=== PATIENT | male | born 1970 | race Caucasian/White ===

== ENCOUNTER 2017-01-06 10:43 | Observation (INO) | payer MEDICAID ==
[~2017-01-06] VITALS: Ht 165.1 cm; Wt 65.8 kg
[~2017-01-06 10:43] MED LIST: DIVA250T51 PO; DOCU-94 PO; GABA-339 PO; LISI-275 PO; METH10TA6 PO; METO-158 PO; NOR5T PO; PRAV20TA3 GT; QUET25TA37 PO; WARF10TA20 PO; WARF3TAB22 PO
[2017-01-06 11:31] LABS: Basophils # (auto) 0 uL; Basophils % (auto) 0.6 % (0.0-2.0); Eosinophils # (auto) 0.1 uL; Eosinophils % (auto) 1.7 % (0.0-7.0); Hematocrit 47.3 % (41.0-53.0); Hemoglobin 15.2 g/dL (13.5-17.5); Lymphocytes # (auto) 1.3 uL; Lymphocytes % (auto) 20.6 % (10.0-50.0); Mean Corpuscular Hemoglobin 30.8 pg (28.0-32.0); Mean Corpuscular Hgb Conc. 32.2 g/dL (32.0-36.0); Mean Corpuscular Volume 95.8 fL (80.0-100.0); Mean Platelet Volume 8.7 fL (7.4-10.4); Monocytes # (auto) 0.4 uL; Monocytes % (auto) 6.7 % (0.0-12.0); Neutrophils # (auto) 4.6 uL; Neutrophils % (auto) 70.4 % (37.0-80.0); Platelet Count (auto) 301 10^3/uL (140-450); Red Cell Distribution Width 15.6 % (11.6-16.0); White Blood Cell 6.6 10^3/uL (4.4-10.8)
[2017-01-06 12:19] LABS: Albumin 3.4 g/dL (3.4-5.0); Alkaline Phosphatase 58 U/L (45-117); Anion Gap 7 (5-15); Aspartate Aminotransferase 31 U/L (15-37); BUN/Creatinine Ratio 22.5; Bilirubin, Total 0.3 mg/dL (0.2-1.0); Blood Urea Nitrogen 18 mg/dL (7-18); Calcium 8.7 mg/dL (8.5-10.1); Carbon Dioxide 29 mmol/L (21-32); Chloride 107 mmol/L (98-107); GFR African American 135 mL/min; GFR Non-African American 112 mL/min; Glucose 81 mg/dL (74-106); Potassium 4.6 mmol/L (3.5-5.1); Sodium 143 mmol/L (136-145); Total Protein 6.7 g/dL (6.4-8.2)
[2017-01-06] MEDS ORDERED: SODIUM CHLORIDE 0.9% 1,000 ML IVB ONE (13:22)
[2017-01-06 13:41] LABS: Amylase 34 U/L (25-115)
[2017-01-06] MEDS ORDERED: GLYCERIN ADULT RECTAL SUPP PR ONE (17:30)
[2017-01-06] MEDS ORDERED: FLEET ENEMA(ADULT) 135 ML PR ONE (17:30)
[2017-01-06 20:13] LABS: Urine Bilirubin Negative (Negative); Urine Blood Negative /uL (Negative); Urine Color Yellow (Yellow); Urine Glucose Normal (Normal); Urine Ketone Negative (Negative); Urine Nitrite Negative (Negative); Urine RBC 1 /hpf (0 - 3); Urine Squamous Epithelial Cell FEW /hpf (<5); Urine Urobilinogen Normal (Negative); Urine pH 7.5 (5.0-8.0)
[2017-01-06 21:56] VITALS: BP 90/65
== END 2017-01-06 21:54 | disposition home or self-care (01) | DRG 254 ==
LOC: EDBD 10:43 → ER 10:51 → OVERFLOW 13:24 → ER 21:54
PROVIDERS: ADMIT Family Medicine; ATTEND Family Medicine
DX: K59.00 Constipation, unspecified (principal); I11.0 Hypertensive heart disease with heart failure; I50.9 Heart failure, unspecified; I25.10 Atherosclerotic heart disease of native coronary artery without angina pectoris; I48.92 Unspecified atrial flutter; I48.91 Unspecified atrial fibrillation; F17.210 Nicotine dependence, cigarettes, uncomplicated; Z95.0 Presence of cardiac pacemaker; Z86.73 Personal history of transient ischemic attack (TIA), and cerebral infarction without residual deficits
CPT/HCPCS: 36415; 71020; 74176; 80053; 81001; 82150; 83690; 84484; 85025; 93005; 96360; 99285; G0378

== ENCOUNTER 2017-06-15 16:10 | Emergency (ER) | payer MEDICAID ==
[~2017-06-15] VITALS: Ht 177.8 cm; Wt 74.8 kg
[~2017-06-15 16:10] MED LIST changes: +HYDR-4663 PO; -NOR5T PO
[2017-06-15 16:28] VITALS: BP 107/71
[2017-06-15] MEDS ORDERED: SODIUM CHLORIDE 0.9% 1,000 ML IVB ONE (16:51)
[2017-06-15] MEDS ORDERED: KETOROLAC TROMETH 30 MG/ML 1ML VIAL IV ONE (17:00)
[2017-06-15 17:40] LABS: Basophils # (auto) 0.1 uL; Basophils % (auto) 1.1 % (0.0-2.0); Eosinophils # (auto) 0.1 uL; Eosinophils % (auto) 2.3 % (0.0-7.0); Hematocrit 47.3 % (41.0-53.0); Hemoglobin 15.7 g/dL (13.5-17.5); Lymphocytes # (auto) 1.4 uL; Lymphocytes % (auto) 29.1 % (10.0-50.0); Mean Corpuscular Hemoglobin 32.6 pg (28.0-32.0); Mean Corpuscular Hgb Conc. 33.3 g/dL (32.0-36.0); Mean Corpuscular Volume 97.8 fL (80.0-100.0); Mean Platelet Volume 8.9 fL (6.9-10.8); Monocytes # (auto) 0.4 uL; Monocytes % (auto) 8.4 % (0.0-12.0); Neutrophils # (auto) 2.8 uL; Neutrophils % (auto) 59.1 % (37.0-80.0); Nucleated Red Blood Cells % 0.1 %; Platelet Count (auto) 176 10^3/uL (140-450); Red Cell Distribution Width 15.9 % (11.8-14.3); White Blood Cell 4.7 10^3/uL (4.4-10.8)
[2017-06-15 17:47] LABS: Albumin 3.6 g/dL (3.4-5.0); Alkaline Phosphatase 42 U/L (45-117); Anion Gap 5 (5-15); Aspartate Aminotransferase 78 U/L (15-37); BUN/Creatinine Ratio 18.4; Bilirubin, Total 0.3 mg/dL (0.2-1.0); Blood Urea Nitrogen 21 mg/dL (7-18); Carbon Dioxide 32 mmol/L (21-32); Chloride 103 mmol/L (98-107); GFR African American 90 mL/min; GFR Non-African American 74 mL/min; Glucose 82 mg/dL (74-106); Potassium 4.4 mmol/L (3.5-5.1); Sodium 140 mmol/L (136-145); Total Protein 6.9 g/dL (6.4-8.2)
== END 2017-06-15 17:49 | disposition left against medical advice (07) ==
LOC: EDBD 16:10 → ER 16:20
DX: R07.89 Other chest pain (principal); G89.4 Chronic pain syndrome; I10 Essential (primary) hypertension; Z86.73 Personal history of transient ischemic attack (TIA), and cerebral infarction without residual deficits; I25.10 Atherosclerotic heart disease of native coronary artery without angina pectoris; I48.91 Unspecified atrial fibrillation; I50.9 Heart failure, unspecified; E78.5 Hyperlipidemia, unspecified; Z79.01 Long term (current) use of anticoagulants; F17.210 Nicotine dependence, cigarettes, uncomplicated; Z88.6 Allergy status to analgesic agent; Z53.29 Procedure and treatment not carried out because of patient's decision for other reasons
CPT/HCPCS: 36415; 80053; 84484; 85025; 93005; 94761

== ENCOUNTER 2017-07-14 12:29 | Emergency (ER) | payer MEDICARE, MEDICAID ==
[~2017-07-14] VITALS: Ht 167.6 cm; Wt 77.1 kg
[~2017-07-14 12:29] MED LIST changes: -HYDR-4663 PO; +HYDR-4683 PO
[2017-07-14 13:46] LABS: Basophils # (auto) 0 uL; Basophils % (auto) 0.8 % (0.0-2.0); Eosinophils # (auto) 0.1 uL; Hematocrit 41.5 % (41.0-53.0); Hemoglobin 13.9 g/dL (13.5-17.5); Lymphocytes # (auto) 1.4 uL; Lymphocytes % (auto) 25.9 % (10.0-50.0); Mean Corpuscular Hemoglobin 32.8 pg (28.0-32.0); Mean Corpuscular Hgb Conc. 33.4 g/dL (32.0-36.0); Mean Corpuscular Volume 98.3 fL (80.0-100.0); Monocytes # (auto) 0.5 uL; Monocytes % (auto) 9.5 % (0.0-12.0); Neutrophils # (auto) 3.3 uL; Neutrophils % (auto) 61.8 % (37.0-80.0); Nucleated Red Blood Cells % 0.1 %; Platelet Count (auto) 169 10^3/uL (140-450); Red Blood Cells 4.22 10^6/uL (4.5-5.90); Red Cell Distribution Width 15.3 % (11.8-14.3); White Blood Cell 5.3 10^3/uL (4.4-10.8)
[2017-07-14] MEDS ORDERED: SODIUM CHLORIDE 0.9% 1,000 ML IV ONE (13:50)
[2017-07-14] MEDS ORDERED: PROMETHAZINE HCL 25 MG/ML 1ML IV ONE (14:00)
[2017-07-14] MEDS ORDERED: KETOROLAC TROMETH 30 MG/ML 1ML VIAL IV ONE (14:00)
[2017-07-14 14:12] LABS: Alanine Aminotransferase 31 U/L (16-61); Albumin 3.1 g/dL (3.4-5.0); Alkaline Phosphatase 42 U/L (45-117); Anion Gap 6 (5-15); Aspartate Aminotransferase 25 U/L (15-37); BUN/Creatinine Ratio 18.6; Bilirubin, Total 0.4 mg/dL (0.2-1.0); Blood Urea Nitrogen 18 mg/dL (7-18); Calcium 8.3 mg/dL (8.5-10.1); Carbon Dioxide 31 mmol/L (21-32); Chloride 105 mmol/L (98-107); GFR African American 108 mL/min; GFR Non-African American 89 mL/min; Glucose 63 mg/dL (74-106); Magnesium 2.3 mg/dL (1.6-2.6); Potassium 3.9 mmol/L (3.5-5.1); Sodium 142 mmol/L (136-145); Total Protein 6.3 g/dL (6.4-8.2)
[2017-07-14 14:54] LABS: Urine WBC None Seen /hpf (0 - 3)
[2017-07-14 15:20] LABS: Urine Bacteria NONE SEEN /hpf (None Seen); Urine Blood Negative /uL (Negative); Urine Specific Gravity 1.018 (1.001-1.035)
[2017-07-14 17:10] VITALS: BP 135/61
== END 2017-07-14 17:30 | disposition home or self-care (01) ==
LOC: EDBD 12:29 → ER 12:39
DX: S33.5XXA Sprain of ligaments of lumbar spine, initial encounter (principal); I48.91 Unspecified atrial fibrillation; I48.92 Unspecified atrial flutter; Z86.73 Personal history of transient ischemic attack (TIA), and cerebral infarction without residual deficits; Z95.0 Presence of cardiac pacemaker; I50.9 Heart failure, unspecified; I25.10 Atherosclerotic heart disease of native coronary artery without angina pectoris; I11.0 Hypertensive heart disease with heart failure; F17.210 Nicotine dependence, cigarettes, uncomplicated; G40.909 Epilepsy, unspecified, not intractable, without status epilepticus; E78.5 Hyperlipidemia, unspecified; R07.9 Chest pain, unspecified; X58.XXXA Exposure to other specified factors, initial encounter; Y93.89 Activity, other specified; Y92.89 Other specified places as the place of occurrence of the external cause; Y99.8 Other external cause status
CPT/HCPCS: 36415; 71020; 72100; 80053; 81001; 83735; 84484; 85025; 93005; 96361; 96374; 96375; 99285; J1885; J2550; J7030

== ENCOUNTER 2018-04-21 00:34 | Observation (INO) | payer MEDICARE, MEDICAID ==
[~2018-04-21] VITALS: Ht 165.1 cm; Wt 54.4 kg
[2018-04-21 01:12] VITALS: BP 125/98
== END 2018-04-21 03:43 | disposition home or self-care (01) | DRG 149 ==
LOC: EDBD 00:34 → ER 00:34 → OVERFLOW 00:35 → ER 03:43
PROVIDERS: ADMIT Emergency Medicine; ATTEND Emergency Medicine
DX: R42 Dizziness and giddiness (principal); I11.0 Hypertensive heart disease with heart failure; I50.9 Heart failure, unspecified; I25.10 Atherosclerotic heart disease of native coronary artery without angina pectoris; I48.91 Unspecified atrial fibrillation; F17.210 Nicotine dependence, cigarettes, uncomplicated; V89.2XXA Person injured in unspecified motor-vehicle accident, traffic, initial encounter; Y93.89 Activity, other specified; Y92.410 Unspecified street and highway as the place of occurrence of the external cause; Y99.8 Other external cause status; Z86.73 Personal history of transient ischemic attack (TIA), and cerebral infarction without residual deficits
CPT/HCPCS: 36415; 70450; 80320; 99285; G0378

== ENCOUNTER → 2018-06-18 | Emergency (ER) | payer MEDICARE, MEDICAID | END | disposition left against medical advice (07) | LOC: ER 01:14 | DX: M25.511 Pain in right shoulder (principal); Z53.21 Procedure and treatment not carried out due to patient leaving prior to being seen by health care provider ==

== ENCOUNTER 2022-05-02 03:02 | Emergency (ER) | payer MEDICARE, MEDICAID ==
[~2022-05-02] VITALS: Ht 172.7 cm; Wt 81.8 kg
[~2022-05-02 03:02] MED LIST changes: +DIVA250T4 PO; -DIVA250T51 PO; -HYDR-4683 PO; +HYDR-4833 PO
[2022-05-02 03:37] VITALS: BP 90/50
[2022-05-02 04:01] LABS: Basophils # (auto) 0.1 10 ^3/uL (0-0.2); Basophils % (auto) 0.8 % (0.0-2.0); Eosinophils # (auto) 0.2 10 ^3/uL (0-0.8); Eosinophils % (auto) 1.9 % (0.0-7.0); Lymphocytes # (auto) 2.6 10 ^3/uL (0.4-5.4); Lymphocytes % (auto) 23.9 % (10.0-50.0); Mean Corpuscular Hemoglobin 32.4 pg (28.0-32.0); Mean Corpuscular Hgb Conc. 33.4 g/dL (32.0-36.0); Mean Corpuscular Volume 96.9 fL (80.0-100.0); Monocytes # (auto) 0.7 10 ^3/uL (0-1.3); Monocytes % (auto) 6.4 % (0.0-12.0); Neutrophils # (auto) 7.2 10 ^3/uL (1.6-8.6); Red Blood Cells 4.95 10^6/uL (4.5-5.90); Red Cell Distribution Width 14.6 % (11.8-14.3); White Blood Cell 10.8 10^3/uL (4.4-10.8)
[2022-05-02 04:27] LABS: Albumin 3.5 g/dL (3.4-5.0); BUN/Creatinine Ratio 22.9; Calcium 9.3 mg/dL (8.5-10.1); Potassium 4.2 mmol/L (3.5-5.1)
[2022-05-02 04:30] LABS: Bilirubin, Total 0.3 mg/dL (0.2-1.0); Total Protein 6.9 g/dL (6.4-8.2)
== END 2022-05-02 07:00 | disposition left against medical advice (07) ==
LOC: ER 03:02 → EDBD 03:02 → ER 07:00
DX: R10.84 Generalized abdominal pain (principal); R11.2 Nausea with vomiting, unspecified; R20.2 Paresthesia of skin; Z53.21 Procedure and treatment not carried out due to patient leaving prior to being seen by health care provider
CPT/HCPCS: 36415; 80053; 83690; 85025; 93005

== ENCOUNTER 2022-12-21 12:21 | Inpatient (IN) | payer MEDICARE, MEDICAID ==
[~2022-12-21] VITALS: Ht 167.6 cm; Wt 65.9 kg
[~2022-12-21 12:21] MED LIST changes: -DIGO0.12 PO
[2022-12-21 12:59] LABS: Basophils # (auto) 0.1 10 ^3/uL (0-0.2); Basophils % (auto) 0.5 % (0.0-2.0); Eosinophils # (auto) 0.1 10 ^3/uL (0-0.8); Hematocrit 50.6 % (41.0-53.0); Hemoglobin 16.6 g/dL (13.5-17.5); Lymphocytes % (auto) 9.3 % (10.0-50.0); Mean Corpuscular Hemoglobin 31.3 pg (28.0-32.0); Mean Corpuscular Hgb Conc. 32.9 g/dL (32.0-36.0); Mean Corpuscular Volume 95.2 fL (80.0-100.0); Monocytes # (auto) 1.2 10 ^3/uL (0-1.3); Monocytes % (auto) 10.8 % (0.0-12.0); Neutrophils # (auto) 8.5 10 ^3/uL (1.6-8.6); Neutrophils % (auto) 78.4 % (37.0-80.0); Nucleated Red Blood Cells % 0.1 %; Red Blood Cells 5.31 10^6/uL (4.5-5.90); Red Cell Distribution Width 14.8 % (11.8-14.3); White Blood Cell 10.9 10^3/uL (4.4-10.8)
[2022-12-21 13:15] LABS: Albumin 4.1 g/dL (3.4-5.0); Calcium 9.7 mg/dL (8.5-10.1); Magnesium 2.3 mg/dL (1.6-2.6); Potassium 3.9 mmol/L (3.5-5.1)
[2022-12-21] MEDS ORDERED: ONDANSETRON HCL 4 MG/2 ML VIAL IV ONE (13:15)
[2022-12-21] MEDS ORDERED: MORPHINE SULFATE INJ 2 MG/ml SYRG IV ONE (13:15)
[2022-12-21 13:18] LABS: BUN/Creatinine Ratio 18.2 (10.0-20.0); Bilirubin, Total 1.1 mg/dL (0.2-1.0)
[2022-12-21 13:42] LABS: INR 5.65 (0.9-1.15)
[2022-12-21 13:43] LABS: Partial Thromboplastin Time 77.9 sec (24.6-33.4)
[2022-12-21] MEDS ORDERED: SODIUM CHLORIDE 0.9% 1,000 ML IV ONE (14:00)
[2022-12-21] MEDS ORDERED: NITROGLYCERIN 2% OINT 1GM PKG TD ONE (14:00)
[2022-12-21] MEDS ORDERED: HYDROmorphone HCL 2 MG/ML VL/or syr IV ONE (14:30)
[2022-12-21] MEDS ORDERED: NITROGLYCERIN 0.4 MG SL TAB SL PRN (15:00)
[2022-12-21] MEDS ORDERED: MORPHINE SULFATE INJ 2 MG/ml SYRG IV PRN (15:00)
[2022-12-21 16:34] LABS: Cholesterol 161 mg/dL (< 200)
[2022-12-21 16:37] LABS: HDL Cholesterol 81 mg/dL (40-59); LDL Cholesterol 68 mg/dL (< 100); Triglycerides 48 mg/dL (< 150)
[2022-12-21] MEDS: SODIUM CHLORIDE 0.9% 1,000 ML IV SCH (17:49)
[2022-12-21 22:34] VITALS: BP 102/72
[2022-12-22] MEDS: PRAVASTATIN SODIUM 20 MG TAB PO SCH ×2 (00:13→20:41)
[2022-12-22] MEDS: ACETAMINOPHEN 325 MG TAB PO PRN ×2 (00:13→20:41)
[2022-12-22 05:00] VITALS: BP 120/77
[2022-12-22 06:51] LABS: Basophils # (auto) 0 10 ^3/uL (0-0.2); Basophils % (auto) 0.3 % (0.0-2.0); Eosinophils # (auto) 0 10 ^3/uL (0-0.8); Eosinophils % (auto) 0.3 % (0.0-7.0); Hematocrit 48.3 % (41.0-53.0); Hemoglobin 16.2 g/dL (13.5-17.5); Lymphocytes # (auto) 1.6 10 ^3/uL (0.4-5.4); Lymphocytes % (auto) 14.5 % (10.0-50.0); Mean Corpuscular Hgb Conc. 33.6 g/dL (32.0-36.0); Mean Corpuscular Volume 95.1 fL (80.0-100.0); Monocytes # (auto) 1.5 10 ^3/uL (0-1.3); Monocytes % (auto) 13.6 % (0.0-12.0); Neutrophils % (auto) 71.3 % (37.0-80.0); Nucleated Red Blood Cells % 0.1 %; Red Blood Cells 5.08 10^6/uL (4.5-5.90); Red Cell Distribution Width 14.7 % (11.8-14.3); White Blood Cell 11.2 10^3/uL (4.4-10.8)
[2022-12-22 07:43] LABS: Potassium 4.8 mmol/L (3.5-5.1)
[2022-12-22 07:52] LABS: Albumin 3.3 g/dL (3.4-5.0); BUN/Creatinine Ratio 22.9 (10.0-20.0); Bilirubin, Total 1.6 mg/dL (0.2-1.0); Total Protein 7.4 g/dL (6.4-8.2)
[2022-12-22 08:13] LABS: INR 6.86 (0.9-1.15)
[2022-12-22] MEDS: ASPirin 81 mg TAB PO SCH (09:54)
[2022-12-22] MEDS ORDERED: METOPROLOL TARTRATE 50 MG TAB PO SCH (10:00)
[2022-12-22] MEDS ORDERED: DIGO0.12 PO (10:01)
[2022-12-22 10:03] VITALS: BP 96/75
[2022-12-22 12:44] LABS: Amphetamine Screen, Urine POSITIVE (NEGATIVE); Barbiturate Scree,Urine NEGATIVE (NEGATIVE); Benzodiazephine Screen, Urine NEGATIVE (NEGATIVE); Cannabinoid Screen, Urine POSITIVE (NEGATIVE)
[2022-12-22 12:49] LABS: Cocaine Screen, Urine NEGATIVE (NEGATIVE)
[2022-12-22 12:55] LABS: Phencyclidine Screen, Urine NEGATIVE (NEGATIVE)
[2022-12-22 12:58] LABS: Opiate Scree,Urine POSITIVE (NEGATIVE)
[2022-12-22 13:04] LABS: Urine Bacteria NONE SEEN /hpf (None Seen); Urine Blood Negative /uL (Negative); Urine Hyaline Cast FEW /lpf (0 - 2); Urine Mucus FEW (None Seen); Urine Specific Gravity 1.029 (1.001-1.035); Urine WBC 3 /hpf (0 - 3)
[2022-12-22 13:15] VITALS: BP 113/79
[2022-12-22] MEDS: SODIUM CHLORIDE 0.9% 1,000 ML IV SCH (16:03)
[2022-12-22 16:39] VITALS: BP 118/78
[2022-12-22] MEDS: methIMAzole 5 MG TAB PO SCH (21:15)
[2022-12-22] MEDS: LISINOPRIL 5 MG TAB PO SCH (21:15)
[2022-12-22 22:00] VITALS: BP 110/73
[2022-12-22 22:33] VITALS: BP 110/73
[2022-12-23 05:00] VITALS: BP 140/67
[2022-12-23] MEDS: methIMAzole 5 MG TAB PO SCH (05:10)
[2022-12-23] MEDS: SODIUM CHLORIDE 0.9% 1,000 ML IV SCH (08:42)
[2022-12-23 09:30] VITALS: BP 142/73
[2022-12-23] MEDS: LISINOPRIL 5 MG TAB PO SCH (09:57)
[2022-12-23] MEDS: ASPirin 81 mg TAB PO SCH (09:58)
[2022-12-23] MEDS ORDERED: DIGOXIN 0.125 MG TAB PO SCH (10:00)
[2022-12-23 10:58] VITALS: BP 142/73
== END 2022-12-23 13:00 | disposition home or self-care (01) | DRG 302 ==
LOC: ER 12:21 → EDBD 12:21 → TELE 14:55 → TELE-EAST 21:54
PROVIDERS: ADMIT Nurse Practitioner Family; ATTEND Family Medicine
DX: I25.10 Atherosclerotic heart disease of native coronary artery without angina pectoris (principal); I50.31 Acute diastolic (congestive) heart failure; N17.9 Acute kidney failure, unspecified; I24.9 Acute ischemic heart disease, unspecified; I11.0 Hypertensive heart disease with heart failure; I48.91 Unspecified atrial fibrillation; E05.90 Thyrotoxicosis, unspecified without thyrotoxic crisis or storm; E78.00 Pure hypercholesterolemia, unspecified; F15.10 Other stimulant abuse, uncomplicated; F12.10 Cannabis abuse, uncomplicated; F17.210 Nicotine dependence, cigarettes, uncomplicated; G62.9 Polyneuropathy, unspecified; Z20.822 Contact with and (suspected) exposure to COVID-19; R79.1 Abnormal coagulation profile; Z82.49 Family history of ischemic heart disease and other diseases of the circulatory system; Z83.3 Family history of diabetes mellitus; Z86.73 Personal history of transient ischemic attack (TIA), and cerebral infarction without residual deficits; Z95.0 Presence of cardiac pacemaker
CPT/HCPCS: 36415; 71045; 80053; 80061; 80162; 80307; 81001; 83036; 83735; 83880; 84443; 84484; 85025; 85379; 85610; 85730; 87040; 87426; 93005; 93306; 96361; 96374; 96375; G0378; J2405

== ENCOUNTER → 2022-12-21 | Emergency (ER) | payer MEDICARE, MEDICAID ==
[~2022-12-21] VITALS: Ht 170.2 cm; Wt 63.6 kg
[~2022-12-21] MED LIST changes: +DIGO0.12 PO; -PRAV20TA3 GT; +PRAV20TA3 PO
[2022-12-21 03:03] VITALS: BP 125/85
[2022-12-21 03:07] LABS: Basophils # (auto) 0.3 10 ^3/uL (0-0.2); Basophils % (auto) 2.5 % (0.0-2.0); Eosinophils # (auto) 0.2 10 ^3/uL (0-0.8); Eosinophils % (auto) 1.5 % (0.0-7.0); Hematocrit 47.4 % (41.0-53.0); Hemoglobin 15.8 g/dL (13.5-17.5); Mean Corpuscular Hemoglobin 31.9 pg (28.0-32.0); Mean Corpuscular Hgb Conc. 33.3 g/dL (32.0-36.0); Mean Corpuscular Volume 95.9 fL (80.0-100.0); Monocytes # (auto) 0.7 10 ^3/uL (0-1.3); Neutrophils # (auto) 9.2 10 ^3/uL (1.6-8.6); Nucleated Red Blood Cells % 0.1 %; Red Blood Cells 4.94 10^6/uL (4.5-5.90); Red Cell Distribution Width 14.6 % (11.8-14.3); White Blood Cell 11.3 10^3/uL (4.4-10.8)
[2022-12-21 03:27] LABS: Albumin 4.1 g/dL (3.4-5.0); BUN/Creatinine Ratio 17.6 (10.0-20.0); Calcium 9.7 mg/dL (8.5-10.1); Potassium 4.2 mmol/L (3.5-5.1)
[2022-12-21 03:30] LABS: Bilirubin, Total 0.6 mg/dL (0.2-1.0); Total Protein 8.2 g/dL (6.4-8.2)
== END | disposition left against medical advice (07) ==
LOC: ER 02:47
DX: R07.89 Other chest pain (principal)
CPT/HCPCS: 36415; 71045; 80053; 84484; 85025; 93005

== ENCOUNTER 2025-05-11 07:11 | Emergency (ER) | payer OTHER, MEDICAID ==
[~2025-05-11] VITALS: Ht 165.1 cm; Wt 70.0 kg
[~2025-05-11 07:11] MED LIST changes: +DIGO0.12 PO; -DIVA250T4 PO; -DOCU-94 PO; -GABA-339 PO; -HYDR-4833 PO; +METH-552 PO; -METH10TA6 PO; -METO-158 PO; -QUET25TA37 PO; +WARF-111 PO; +WARF-115 PO; -WARF10TA20 PO; -WARF3TAB22 PO
[2025-05-11 07:25] VITALS: BP 112/72; RESP 18; TEMP 98.8; O2SAT 96
--- NOTE | 2025-05-11 07:28 | ED.PDOC ---
HPI Comments This is a 54 year old male BEV presenting to the ED with chief complaint of near-syncope. Patient reports that when he got out of the bathtub this morning, he started to experience lightheadedness and needed to sit down due to feeling like he was going to pass out. EMS relays that the patient was hypotensive on scene at 78/54, however, after 500mL of fluids was given en route to the ED, his BP improved to 112/72. Patient denies any chest pain, SOB, dizziness, N/V, headache, or syncope. Time Seen by MD: 07:26 Primary Care Provider: Terry Reviewed Notes: Nurses Notes, Customer Support Associate Notes, Medications, Allergies Allergies: Coded Allergies: Midazolam (Verified Allergy, Unknown, 05/23/16) Home Meds Reported Medications Digoxin (Digoxin) 125 Mcg Tab, 125 MCG PO DAILY, TAB 12/22/22 Methimazole (Methimazole) 10 Mg Tab, 5 MG PO TID, TAB 05/23/16 Pravastatin Sodium (PRAVACHOL TABLET) 20 Mg Tb, 10 MG PO HS 05/23/16 Warfarin Sodium (Warfarin Sodium) 10 Mg Tab, 10 MG PO, TAB 05/23/16 Warfarin Sodium (Warfarin Sodium) 3 Mg Tab, 1 MG PO for 30 Days, MG 05/23/16 Lisinopril (Lisinopril) 5 Mg Tab, 20 MG PO BID for 30 Days, MG 05/23/16 Information Source: Patient, Emergency Med Personnel Mode of Arrival: EMS Severity: Moderate Timing: Hours Duration: Since onset Prehospital treatment: None Onset: At Rest Cardiac Risk Factors: Hyperlipidemia, HTN PE Risk Factors: None Past Medical History PAST MEDICAL HISTORY: AFIB, CAD, CHF, CVA, High Lipids, HTN, Thyroid Surgical History: Pacemaker, Tonsillectomy Family History Family History: Reviewed,noncontributory to illness, Unknown Social History Smoker: Cigarettes, Less Than 1 Pack/Day Alcohol: Occasionally Drugs: Denies Drug Use Lives In: Home Constitutional: denies: chills, diaphoresis, fatigue, fever, malaise, sweats, weakness, others EENTM: denies: blurred vision, double vision, ear bleeding, ear discharge, ear drainage, ear pain, ear ringing, eye pain, eye redness, hearing loss, mouth pain, mouth swelling, nasal discharge, nose bleeding, nose congestion, nose pain, photophobia, tearing, throat pain, throat swelling, voice changes, others Respiratory: denies: cough, hemoptysis, orthopnea, SOB at rest, shortness of breath, SOB with excertion, stridor, wheezing, others Cardiovascular: reports: lightheadedness; denies: chest pain, dizzy spells, diaphoresis, Dyspnea on exertion, edema, irregular heart beat, left arm pain, palpitations, PND, syncope, others Gastrointestinal: denies: abdomen distended, abdominal pain, blood streaked bowels, constipated, diarrhea, dysphagia, difficulty swallowing, hematemesis, melena, nausea, poor appetite, poor fluid intake, rectal bleeding, rectal pain, vomiting, others Genitourinary: denies: burning, dysuria, flank pain, frequency, hematuria, incontinence, penile discharge, penile sore, pain, testicle pain, testicle swelling, urgency, others Neurological: denies: dizziness, fainting, headache, left sided numbness, left sided weakness, numbness, paresthesia, pre-existing deficit, right sided numbness, right sided weakness, seizure, speech problems, tingling, tremors, weakness, others Musculoskeletal: denies: back pain, gout, joint pain, joint swelling, muscle pain, muscle stiffness, neck pain, others Integumetry: denies: bruises, change in color, change in hair/nails, dryness, laceration, lesions, lumps, rash, wounds, others Allergic/Immunocompromised: denies: Difficulty Healing, Frequent Infections, Hives, Itching, others Hematologic/Lymphatic: denies: anemia, blood clots, easy bleeding, easy bruising, swollen glands, others Endocrine: denies: excessive hunger, excessive sweating, excessive thirst, excessive urination, flushing, intolerance to cold, intolerance to heat, unexplained weight gain, unexplained weight loss, others Psychiatric: denies: anxiety, bipolar disorder, depression, hopeless, panic disorder, schizophrenia, sleepless, suicidal, others All Other Systems: Reviewed and Negative Physical Exam General Appearance: Moderate Distress, Normal HEENT: Normal ENT Inspection, Pharynx Normal, TMs Normal Neck: Full Range of Motion, Non-Tender, Normal, Normal Inspection Respiratory: Chest Non-Tender, Lungs Clear, No Accessory Muscle Use, No Respir atory Distress, Normal Breath Sounds Cardiovascular: Irregular, No Edema, No JVD, No Murmur, No Gallop, Normal Peripheral Pulses Breast Exam: Deferred Gastrointestinal: No Organomegaly, Non Tender, No Pulsatile Mass, Normal Bowel Sounds, Soft Genitalia: Deferred Pelvic: Deferred Rectal: Deferred Extremities: No calf tenderness, Normal capillary refill, Normal inspection, Normal range of motion, Non-tender, No pedal edema Musculoskeletal : Apperance: Normal Neurologic: Alert, mill manager II-XII nml as Tested, No Motor Deficits, Normal Affect, Normal Mood, No Sensory Deficits Cerebellar Function: NOT DONE Reflexes: NOT DONE Skin: Dry, Normal Color, Warm Peripheral Pulses: 3+ Radial (R), 3+ Radial (L) Lymphatic: No Adenopathy EKG EKG : Pulse Rate (adult): 95 Cardiac Rhythm: Afib Was a procedure done? Was a procedure done?: No CP Differential Dx Differential Diagnosis: A-fib, A-Flutter, Angina, Anxiety / Panic Attack, Atrial Dysrhythmia, Electrolyte Disorder X-Ray, Labs, Meds, VS Vital Signs Date Time Temp Pulse Resp B/P (MAP) Pulse Ox O2 Delivery O2 Flow Rate FiO2 05/11/25 07:30 95 05/11/25 07:28 95 05/11/25 07:25 98.8 79 18 112/72 96 98.8 Lab Test 05/11/25 07:49 Range/Units White Blood Count 6.8 4.4-10.8 10^3/uL Red Blood Count 5.47 4.5-5.90 10^6/uL Hemoglobin 17.4 13.5-17.5 g/dL Hematocrit 50.6 41.0-53.0 % Mean Corpuscular Volume 92.5 80.0-100.0 fL Mean Corpuscular Hemoglobin 31.8 28.0-32.0 pg Mean Corpuscular Hemoglobin Concent 34.4 32.0-36.0 g/dL Red Cell Distribution Width 14.1 11.8-14.3 % Platelet Count 224 140-450 10^3/uL Mean Platelet Volume 9.1 6.9-10.8 fL Neutrophils (%) (Auto) 60.4 37.0-80.0 % Lymphocytes (%) (Auto) 25.0 10.0-50.0 % Monocytes (%) (Auto) 8.7 0.0-12.0 % Eosinophils (%) (Auto) 5.2 0.0-7.0 % Basophils (%) (Auto) 0.7 0.0-2.0 % Neutrophils # (Auto) 4.1 1.6-8.6 10 ^3/uL Lymphocytes # (Auto) 1.7 0.4-5.4 10 ^3/uL Monocytes # (Auto) 0.6 0-1.3 10 ^3/uL Eosinophils # (Auto) 0.4 0-0.8 10 ^3/uL Basophils # (Auto) 0 0-0.2 10 ^3/uL Nucleated Red Blood Cells 0.2 % Sodium Level 141 136-145 mmol/L Potassium Level 4.4 3.5-5.1 mmol/L Chloride Level 106 98-107 mmol/L Carbon Dioxide Level 24 20-31 mmol/L Anion Gap 11 5-15 Blood Urea Nitrogen 18 9-23 mg/dL Creatinine 1.24 0.700-1.30 mg/dL Glomerular Filtration Rate Calc 70 >90 mL/min BUN/Creatinine Ratio 14.5 10.0-20.0 Serum Glucose 98 74-106 mg/dL Calcium Level 10.0 8.7-10.4 mg/dL Troponin I High Sensitivity 12 </=54 ng/L Thyroid Stimulating Hormone (TSH) 11.46 H 0.55-4.78 uIU/mL [place] [id number] Ph: [phone] DIAGNOSTIC IMAGING Diagnostic Imaging Report : [id number] Signed PATIENT: WHIT BUTLER III ACCT: [id number] UNIT: [id number] : 1970 LOC: ER ROOM / BED: / AGE / SEX: 54 / M ADM STATUS: REG ER SERVICE 0725 ORDERING PHYSICIAN: SHOBHA MELENDEZ MD PROCEDURE(s): CXRP - CHEST PORTABLE REASON: sob ORDER NUMBER(s): [id number], ACCESSION NUMBER(s): [id number] CHEST RADIOGRAPH Indication: sob Technique: Single frontal view of the chest was obtained Comparison: XY CHEST PORTABLE on DOS: 12/21/22 FINDINGS: Lines and Tubes: Single lead pacemaker. Lungs: No focal consolidation. Pleura: No effusion. No pneumothorax. Cardiomediastinal contours: Unremarkable Bones: No acute osseous abnormality. IMPRESSION: 1. No acute cardiopulmonary disease. ATED BY: MAGGI ARCINIEGA MD DICTATED DATE/TIME: 05/11/25751 SIGNED BY: MAGGI ARCINIEGA MD SIGNED DATE/TIME: 05/11/25751 CC: Patient alert. Vitals stable. Possible near-syncope. Answering questions. Chest x-ray reviewed does not show any acute changes. No head trauma. Establish intravenous access. Was given fluids. Endocrine disorder. Possibly need MRI. Reviewed his history. EKG shows atrial fibrillation. Explained to the patient. Continue to monitor. Images Reviewed?: Images reviewed and evaluated by me Time of 1ST Reevaluation: 08: Reevaluation 1ST: Unchanged Patient Education/Counseling: Diagnosis, Treatment Family Education/Counseling: No Family Present SEPSIS Sepsis Screen Physician Orders Chest Portable (05/11/25 07:25) Urinalysis (05/11/25 07:25) Vital Signs Date Time Temp Pulse Resp B/P (MAP) Pulse Ox O2 Delivery O2 Flow Rate FiO2 05/11/25 07:30 95 05/11/25 07:28 95 05/11/25 07:25 98.8 79 18 112/72 96 98.8 Laboratory Tests Test 05/11/25 07:49 White Blood Count 6.8 10^3/uL (4.4-10.8) Departure 1 Departure Time of Disposition: 09:05 Impression: Primary Impression: Atrial fibrillation and flutter Additional Impression: Autonomic disorder Disposition: 09 ADMITTED INPATIENT Admit to: Med Surg Condition: Guarded Critical Care Note Critical Care Time?: No Stability Stability form required: No Heart Score Heart Score: Heart Score Response (Comments) Value History Highly Suspicious 2 EKG Normal 0 Age 45-64 1 Risk Factors >3 or Hx ASHD 2 Troponin Normal limit 0 Total 5 I personally scribed for SHOBHA MELENDEZ MD ([email or web address]) on 05/11/25 at 07:28. Electronically submitted by Rakan Kemp ([email or web address]). I personally scribed for SHOBHA MELENDEZ MD ([email or web address]) on 05/11/25 at 07:30. Electronically submitted by Rakan Kemp ([email or web address]). I personally scribed for SHOBHA MELENDEZ MD ([email or web address]) on 05/11/25 at 08:01. Electronically submitted by Rakan Kemp ([email or web address]). SHOBHA MELENDEZ MD May 11, 2025 07:28
[2025-05-11 07:30] VITALS: PULSE 95
--- NOTE | 2025-05-11 07:36 | ECG ---
[facility] Test Date: 2025-05-11 Test Time: 07:28:08 Pat Name: WHIT BUTLER Department: [facility] ED Patient ID: [id number] Room: Gender: M Farmworker Animal: LUIZ : 1970 Requested By: SHOBHA MELENDEZ Order Number: [id number] Reading MD: Prosper Gomez Measurements Intervals [place] Rate: 95 P: 0 CO: 0 QRS: 111 QRSD: 90 T: -83 QT: 296 QTc: 372 Interpretive Statements Atrial fibrillation Probable lateral infarct, age indeterminate Anteroseptal infarct, old Electronically Signed On 05-13-2025 18:41:23 PDT by Prosper Gomez Please click the below link to view image of tracing.
--- NOTE | 2025-05-11 07:54 | DVH ---
CHEST RADIOGRAPH Indication: sob Technique: Single frontal view of the chest was obtained Comparison: XY CHEST PORTABLE on DOS: 12/21/22 FINDINGS: Lines and Tubes: Single lead pacemaker. Lungs: No focal consolidation. Pleura: No effusion. No pneumothorax. Cardiomediastinal contours: Unremarkable Bones: No acute osseous abnormality. IMPRESSION: 1. No acute cardiopulmonary disease.
[2025-05-11 08:11] LABS: Hematocrit 50.6 % (41.0-53.0); Hemoglobin 17.4 g/dL (13.5-17.5); Mean Corpuscular Hemoglobin 31.8 pg (28.0-32.0); Mean Corpuscular Volume 92.5 fL (80.0-100.0); Nucleated Red Blood Cells % 0.2 %
[2025-05-11 08:13] LABS: Chloride 106 mmol/L (98-107); Potassium 4.4 mmol/L (3.5-5.1); Sodium 141 mmol/L (136-145)
[2025-05-11 08:14] LABS: Anion Gap 11 (5-15); Calcium 10.0 mg/dL (8.7-10.4); Carbon Dioxide 24 mmol/L (20-31)
[2025-05-11 08:19] LABS: BUN/Creatinine Ratio 14.5 (10.0-20.0); Blood Urea Nitrogen 18 mg/dL (9-23); Glucose 98 mg/dL (74-106)
== END 2025-05-11 16:00 | disposition left against medical advice (07) ==
LOC: EDBD 07:11 → ER 07:11
DX: I48.91 Unspecified atrial fibrillation (principal); I48.92 Unspecified atrial flutter; G90.9 Disorder of the autonomic nervous system, unspecified; I11.0 Hypertensive heart disease with heart failure; I50.9 Heart failure, unspecified; I25.10 Atherosclerotic heart disease of native coronary artery without angina pectoris; F17.210 Nicotine dependence, cigarettes, uncomplicated; F10.90 Alcohol use, unspecified, uncomplicated; E78.5 Hyperlipidemia, unspecified; Z79.899 Other long term (current) drug therapy; Z86.73 Personal history of transient ischemic attack (TIA), and cerebral infarction without residual deficits; Z90.89 Acquired absence of other organs; Z95.0 Presence of cardiac pacemaker; Y90.9 Presence of alcohol in blood, level not specified
CPT/HCPCS: 36415; 71045; 80048; 84443; 84484; 85025; 93005